=== PATIENT | male | born 1960 ===

== ENCOUNTER 2021-09-25 06:56 | Emergency (ER) | payer SELFPAY ==
[~2021-09-25] VITALS: Ht 165.1 cm; Wt 72.6 kg
[2021-09-25] MEDS ORDERED: cloNIDine HCL 0.1 MG TAB PO ONE (07:15)
[2021-09-25 08:31] LABS: Basophils # (auto) 0 10 ^3/uL (0-0.2); Basophils % (auto) 0.3 % (0.0-2.0); Eosinophils # (auto) 0.1 10 ^3/uL (0-0.8); Hematocrit 43.9 % (41.0-53.0); Lymphocytes # (auto) 0.8 10 ^3/uL (0.4-5.4); Lymphocytes % (auto) 15.1 % (10.0-50.0); Mean Corpuscular Hemoglobin 31.5 pg (28.0-32.0); Mean Corpuscular Hgb Conc. 34.1 g/dL (32.0-36.0); Mean Corpuscular Volume 92.5 fL (80.0-100.0); Monocytes # (auto) 0.6 10 ^3/uL (0-1.3); Monocytes % (auto) 10.3 % (0.0-12.0); Neutrophils % (auto) 73.3 % (37.0-80.0); Nucleated Red Blood Cells % 0.4 %; Red Blood Cells 4.75 10^6/uL (4.5-5.90); Red Cell Distribution Width 13.3 % (11.8-14.3); White Blood Cell 5.5 10^3/uL (4.4-10.8)
[2021-09-25 08:45] LABS: Calcium 8.4 mg/dL (8.5-10.1)
[2021-09-25 08:49] LABS: BUN/Creatinine Ratio 10.2; Bilirubin, Total 0.3 mg/dL (0.2-1.0); Total Protein 8.6 g/dL (6.4-8.2)
[2021-09-25 09:09] LABS: Potassium 2.7 mmol/L (3.5-5.1)
[2021-09-25] MEDS ORDERED: POTASSIUM EFFERVESENT TAB 25 MEQ PO ONE (09:15)
[2021-09-25] MEDS ORDERED: amLODIPine BESYLATE 5 MG TAB PO ONE (09:30)
[2021-09-25] MEDS ORDERED: hydrALAZINE HCL 20 MG/ML VL IV ONE ×2 (11:00→14:45)
[2021-09-25] MEDS ORDERED: LABETALOL HCL 5 MG/ML 4ML SYRINGE IV ONE ×2 (12:15→13:30)
[2021-09-25] MEDS ORDERED: LORazepam 2MG/ML-1ML VIAL IV ONE (12:15)
[2021-09-25 15:24] VITALS: BP 156/96
== END 2021-09-25 16:17 | disposition home or self-care (01) ==
LOC: ER 06:56
DX: I16.0 Hypertensive urgency (principal); E87.6 Hypokalemia; R51.9 Headache, unspecified; F17.210 Nicotine dependence, cigarettes, uncomplicated; F12.10 Cannabis abuse, uncomplicated
CPT/HCPCS: 36415; 70450; 80053; 84484; 85025; 96374; 96375; 96376; 99285; J0360; J3490